=== PATIENT | female | born 1975 | race Caucasian/White ===

== ENCOUNTER 2017-03-21 10:10 | Outpatient (CLI) | payer OTHER ==
--- NOTE | 2017-03-21 11:08 | DIAGNOSTIC IMAGING REPORT ---
PROCEDURE: XR HAND 3 OR 4 VIEWS - LEFT INDICATION: Left hand pain. Assess for arthritis. TECHNIQUE: Three views. COMPARISON: None. FINDINGS: There are mild arthritic changes of the left first metacarpal phalangeal joint. The rest of the osseous structures and joint spaces are normal. IMPRESSION: 1. Mild arthritic changes of the left first metacarpal phalangeal joint (left). Findings are compatible with osteoarthritis. 2. Otherwise negative left hand.
--- NOTE | 2017-03-21 11:09 | DIAGNOSTIC IMAGING REPORT ---
PROCEDURE: XR HAND 3 OR 4 VIEWS - RIGHT INDICATION: Right hand pain. Assess for arthritis. TECHNIQUE: Three views. COMPARISON: None. FINDINGS: There are mild arthritic change of the right first metacarpal phalangeal joint. The rest of the osseous structures and joint spaces are normal. IMPRESSION: 1. Mild arthritic changes of the right first metacarpal phalangeal joint (right thumb). Findings are most compatible with osteoarthritis. 2. Otherwise negative right hand.
== END 2017-03-21 23:00 ==
LOC: XR SRH 10:10
DX: M25.541 Pain in joints of right hand (principal)